=== PATIENT | female | born 1965 | race Caucasian/White ===

== ENCOUNTER → 2017-05-05 | Outpatient (CLI) | payer OTHER ==
--- NOTE | 2017-05-05 23:10 | MR ---
EXAMINATION TYPE: MR knee RT wo con DATE OF EXAM: 05/05/2017 COMPARISON: NONE HISTORY: knee pain with swelling x2 months TECHNIQUE: Multiplanar, multisequence imaging of the right knee is performed without IV contrast. FINDINGS: There is a mild knee joint effusion. The anterior and posterior cruciate ligaments are intact. The co llateral ligaments appear intact. There is a horizontal tear through the anterior and posterior horns of the lateral meniscus. There is a complex horizontal tear of the posterior horn of the medial meniscus. There is thinning of the posterior horn medial meniscus. There is small horizontal tear anterior horn of the medial menis cus. There is mild narrowing of the medial joint space. There is no evidence of a fracture. Patellofe moral joint is intact.. IMPRESSION: Extensive tears of the medial and lateral menisci. Knee joint effusion. No evidence of ligamentous te ar. 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
== END | disposition home or self-care (01) ==
LOC: RADMRIMAIN 19:59
PROVIDERS: ATTEND Orthopaedic Surgery
DX: S83.281A Other tear of lateral meniscus, current injury, right knee, initial encounter (principal); S83.241A Other tear of medial meniscus, current injury, right knee, initial encounter; M17.11 Unilateral primary osteoarthritis, right knee